=== PATIENT | male | born 1960 | race Caucasian/White ===

== ENCOUNTER → 2020-09-27 | Outpatient (CLI) | payer BC ==
[~2020-09-27] MED LIST: FISH OIL; HYDR-707 PO; NAPR-243 PO
--- NOTE | 2020-09-27 11:09 | Diagnostic Imaging Report ---
PROCEDURE: MRI right joint upper extremity without contrast. TECHNIQUE: Multiplanar, multisequence non contrast-enhanced MRI of the right upper extremity was accomplished. INDICATION: History of rotator cuff tear, surgical repair and reinjury 3 weeks ago. Compared with a preoperative study performed in 2009. FINDINGS: No gross labral detachment or stacy labral tear. Long head of the biceps tendon is thickened but in normal position with no signal abnormality. Its artifact from bone anchors in the humeral head with findings of full thickness re-tear of the supra and infraspinatus are retracted to project at about the 1 o'clock position of the humeral head as seen in the coronal views length of about 3 cm. The proximal muscle bellies of the supra and infraspinatus showed normal bulk with only mildly elevated T2 signal intensity. The deltoid attachment appeared normal. There is a moderate joint effusion superolateral to the humeral head inferior to the free edge of the ruptured retracted cuff. There is a 1.5 cm length likely calcified body with central marrow signal intensity. There is a moderate glenohumeral osteoarthritis and [id number] AC joint arthritis. The humeral head is high riding and rest along the undersurface of the degenerated distal acromion. IMPRESSION: 1. Full-thickness rupture of the surgically repaired cuff throughout the length of the supra and infraspinatus tendons. No significant proximal muscle belly atrophy. Calcific-like signal intensity material is along the undersurface of the free edge of the tendon this is either 1.5 cm loose body or large bulky calcification associated with chronic calcific tendinitis of the cuff. 2. Glenohumeral and acromioclavicular arthritis. No fracture. Unruptured and normally positioned thickened long head biceps. Dictated by: Dictated on workstation # [id number]
== END ==
LOC: RAD 08:00
PROVIDERS: ATTEND Nurse Practitioner
DX: M75.121 Complete rotator cuff tear or rupture of right shoulder, not specified as traumatic (principal); M19.011 Primary osteoarthritis, right shoulder
CPT/HCPCS: 73221

== ENCOUNTER 2021-09-08 08:31 | Outpatient (CLI) | payer BC ==
[~2021-09-08] VITALS: Ht 185.4 cm; Wt 93.0 kg
[2021-09-08] MEDS ORDERED: EMPA10TA PO (15:23)
[2021-09-08] MEDS ORDERED: ATOR20TA49 PO (15:23)
[2021-09-08] MEDS ORDERED: METF-399 PO (15:23)
== END 2021-09-09 09:11 | disposition home or self-care (01) ==
LOC: PREOP 08:31
PROVIDERS: ATTEND Surgery
DX: Z01.818 Encounter for other preprocedural examination (principal)

== ENCOUNTER → 2021-09-14 | Day surgery (SDC) | payer BC ==
[2021-09-14] VITALS (13 sets, daily range): BP systolic 109–162; BP diastolic 61–100
[~2021-09-14] VITALS: Ht 185.4 cm; Wt 93.0 kg
[~2021-09-14] MED LIST changes: +ATOR20TA49 PO; +EMPA10TA PO; +LIDOCAINE JELLY 2% 6 ML SYRINGE MM PRN; +METF-399 PO; +MIDAZOLAM 5 MG/5 ML (VERSED) VIAL IV ONE; +NS IV 1000 ML 1,000 ML IV STA; +NS IV 500 ML 500 ML ONE; +fentaNYL INJ 100 MCG/2 ML AMP IVP ONE
--- NOTE | 2021-09-14 11:05 | Conscious Sedation/ASA ---
Conscious Sedation Pre-Proced Time 10:30 ASA Score 2 For ASA 3 and 4: Consider anesthesia and medical clearance. Also, for patients with a history of failed moderate sedation consider anesthesia. Airway Lungs Heart ASA score ASA 1: a normal healthy patient ASA 2: a patient with a mild systemic disease (mid diabetes, controlled hypertension, obesity ASA 3: a patient with a severe systemic disease that limits activity (angina, COPD, prior Myocardial infarction) ASA 4: a patient with an incapacitating disease that is a constant threat to life (CHF, renal failure) ASA 5: a moribund patient not expected to survive 24 hrs. (ruptured aneurysm) ASA 6: a declared brain- patient whose organs are being harvested. For emergent operations, add the letter E after the classification Mallampati Classification Grade 2 Sedation Plan Analgesia, Amnesia, Plan communicated to team members, Discussed options with patient/fam, Discussed risks with patient/fam The patient is an appropriate candidate to undergo the planned procedure, sedation, and anesthesia. The patient immediately re-assessed prior to indication. ART RIVERS MD Sep 14, 2021 11:05
--- NOTE | 2021-09-14 11:06 | Progress Note-Pre Operative ---
Pre-Operative Progress Note H&P Reviewed The H&P was reviewed, patient examined and no changes noted. Date Seen by Provider: Sep 14, 2021 Time Seen by Provider: 10:30 Date H&P Reviewed: Sep 14, 2021 Time H&P Reviewed: 10:30 Pre-Operative Diagnosis: screening colo, family hx ATR RIVERS MD Sep 14, 2021 11:06
--- NOTE | 2021-09-14 11:07 | Discharge Inst-Surgical ---
D/C Lap Instructions-TITA Follow Up Activity as tolerated High Fiber Diet 25g or more per day Avoid Alcohol, Caffeine, Spicy [place] and Acid foods. Drink 64 fluid oz or more of fluids per day. Symptoms to Report: Fever over 101 degree F, Nausea/Vomiting If any problems/questions: Contact your physician or go to Emergency Room ART RIVERS MD Sep 14, 2021 11:07
--- NOTE | 2021-09-14 12:59 | Progress Note-Post Operative ---
Post-Operative Progess Note Surgeon (s)/Revenue Officer (s) Surgeon ART RIVERS MD Revenue Officer: none Pre-Operative Diagnosis screening colo, family hx Post-Operative Diagnosis mild chronic stage 2 ext and int hemorrhoids, moderate sigmoid diverticulosis. Procedure & Operative Findings Date of Procedure 09/14/21 Procedure Performed/Findings colonoscopy Anesthesia Type cs Estimated Blood Loss Estimated blood loss (mL): minimal Specimens/Packing Specimens Removed none ART RIVERS MD Sep 14, 2021 12:59
--- NOTE | 2021-09-14 18:02 | OPERATIVE REPORT ---
DATE OF SERVICE: 09/14/2021 PREOPERATIVE DIAGNOSIS: Screening colonoscopy with family history of colon cancer. POSTOPERATIVE DIAGNOSES: Mild chronic stage II external and internal hemorrhoids, moderate sigmoid diverticulosis. PROCEDURE: Colonoscopy. SURGEON: Art Rivers MD. ANESTHESIA: Conscious sedation. ESTIMATED BLOOD LOSS: Minimal. FINDINGS: Mild chronic stage II external and internal hemorrhoids, moderate sigmoid diverticulosis. DISPOSITION: The patient tolerated the procedure well. INDICATIONS: The patient is a 61-year-old male in need of a followup screening colonoscopy. His last colonoscopy was 5 years ago and he does remember having a benign polyp. He does have a significant family history of colon cancer with two brothers being diagnosed with the disease in their 50s and 60s. He does not report any red blood per rectum nor any dark tarry stools. DESCRIPTION OF PROCEDURE: The patient was brought to endoscopy suite, laid in the left lateral decubitus position. After adequate IV pain and sedative medications and conscious sedation anesthesia, a digital rectal examination was performed. Mild stage II external and internal hemorrhoids were identified, which were not actively edematous nor inflamed and no bleeding. Normal sphincter tone was felt and there were no palpable masses. Prostate gland was palpable and appeared normal. The endoscope was then intubated and anus and rectum gently insufflated. The endoscope was then advanced to the valves of [place] of the rectum with no polyps or any neoplasms identified. Through the sigmoid colon, a moderate sigmoid diverticulosis identified. The endoscope was then advanced and remainder of the descending, transverse and ascending colon to the cecum, which were normal. There were no polyps or any neoplasms identified throughout the colon or rectum. The endoscope was then slowly withdrawn while taking a second look and suctioning of residual air with no additional findings. The patient tolerated the procedure well. We will recommend continued medical management with a high-fiber diet with a fiber supplement, which should equal or exceed 30 grams daily as well as significant amounts of water to promote soft stools on a daily basis. Due to his first-degree family history of colon cancer, we will recommend a followup colonoscopy in 5 years. Job ID: [id number] DocumentID: [id number] Dictated Date: 09/14/2021 12:54:53 Abrasive Grader Helper Date: 09/14/2021 18:00:25 Dictated By: ART RIVERS MD
== END | disposition home or self-care (01) ==
LOC: ENDO 10:21
PROVIDERS: ATTEND Surgery
DX: Z12.11 Encounter for screening for malignant neoplasm of colon (principal); Z80.0 Family history of malignant neoplasm of digestive organs; K64.1 Second degree hemorrhoids; K57.30 Diverticulosis of large intestine without perforation or abscess without bleeding; E11.9 Type 2 diabetes mellitus without complications; Z79.899 Other long term (current) drug therapy; Z79.84 Long term (current) use of oral hypoglycemic drugs; Z86.010 Personal history of colon polyps

== ENCOUNTER → 2022-09-05 | Outpatient (CLI) | payer BC ==
[~2022-09-05] MED LIST changes: +CATHETER FLUSH 10 ML SYR IVP PRN; -LIDOCAINE JELLY 2% 6 ML SYRINGE MM PRN; -MIDAZOLAM 5 MG/5 ML (VERSED) VIAL IV ONE; -NS IV 1000 ML 1,000 ML IV STA; -NS IV 500 ML 500 ML ONE; -fentaNYL INJ 100 MCG/2 ML AMP IVP ONE
[2022-09-05 09:33] VITALS: BP 143/81
--- NOTE | 2022-09-06 05:23 | STRESS TEST ---
DATE OF SERVICE: 09/05/2022 RESTING AND POST-EXERCISE TECHNETIUM-99M TETROFOSMIN SPECT CT IMAGING ORDERING PHYSICIAN: Dr. Rojas. CLINICAL DIAGNOSIS: Chest discomfort. Baseline images were carried out after injection of 10.14 mCi of Technetium-99m Tetrofosmin. Subsequently, exercise was carried out on a treadmill. Ned protocol was employed. Heart rate response to exercise was normal. Blood pressure response to exercise was hypertensive. In the beginning, a few isolated premature ventricular contractions were seen, which resolved with continued exercise. He exercised for a total of 10 minutes and 15 seconds. After he had indicated that he would not be able to go for more than another minute, 29.7 mCi of Technetium-99m Tetrofosmin were injected and the exercise was continued for another minute. Test was stopped on account of fatigue. He did not report chest pain. He attained 89% of maximum predicted heart rate and exercise for a total of 10 minutes and 15 seconds. Review of images at rest and following stress does not indicate any significant perfusion defects consistent with myocardial ischemia or infarction. Gated images show normal global systolic function with normal regional wall motion. Left ventricular ejection fraction is calculated to be 57%. CONCLUSION: 1. No evidence of significant myocardial ischemia or infarction. 2. Normal regional wall motion. 3. Normal global left ventricular systolic function with calculated ejection fraction of 57%. 4. Hypertensive response to exercise. CC: Dr. Maria Rojas -- requested, unable to deliver. Job ID: [id number] DocumentID: [id number] Dictated Date: 09/05/2022 17:50:28 Bleach Range Operator Date: 09/06/2022 05:01:00 Dictated By: KIM SETH MD; ROC; FACP; FACC;
== END ==
LOC: CARD 07:14
PROVIDERS: ATTEND Internal Medicine Endocrinology, Diabetes & Metabolism
DX: R07.9 Chest pain, unspecified (principal)
CPT/HCPCS: 78452; 93017; A9502